=== PATIENT | male | born 2000 | race Caucasian/White ===

== ENCOUNTER 2025-03-12 11:10 | Outpatient (CLI) | payer OTHER, SELFPAY ==
[2025-03-12 12:55] LABS: Hematocrit 46.0 % (42.0-52.0); Hemoglobin 15.1 g/dL (14.0-18.0); Immature Granulocyte Percent A 0.3 % (0-0.5); Lymphocytes Absolute Auto 1.71 K/mm3 (0.9-3.2); Mean Corpuscular HGB Conc 32.8 g/dl (32-36); Mean Corpuscular Hemoglobin 30.1 pg (26-34); Mean Corpuscular Volume 91.6 fl (80-100); Nucleated Red Blood Cells Absolute Auto 0.000 K/mm3 (0.0-0.012); Nucleated Red Blood Cells Perc 0.0 % (0.0-0.2); Platelet Count Result 259 k/mm3 (150-375); Red Blood Count 5.02 M/mm3 (4.6-6.20); White Blood Count 7.2 K/mm3 (4.5-10.0)
[2025-03-12 13:11] LABS: Alanine Aminotransferase 24 U/L (6-50); Albumin Level 4.7 g/dL (3.5-5.1); Alkaline Phosphatase 58 U/L (38-126); Anion Gap 7 mmol/L (4-12); Aspartate Amino Transferase 43 U/L (17-59); Bilirubin,Total 0.5 mg/dL (0.2-1.3); Blood Urea Nitrogen 16 mg/dL (9-20); Calcium 9.4 mg/dL (8.4-10.2); Carbon Dioxide 26 mmol/L (22-30); Chloride 107 mmol/L (98-107); Cholesterol 232 mg/dL (0-200); Estimated Glomerular Filt Rate > 60; Glucose 72 mg/dL (65-110); HDL Direct 83 mg/dL; Potassium 4.1 mmol/L (3.4-5.0); Sodium 140 mmol/L (137-145); Total Protein 7.7 g/dL (6.3-8.2); Triglycerides 70 mg/dL (<150)
[2025-03-12 13:36] LABS: Free T3 3.00 pg/mL (2.32-6.09); Free T4 Free Thyroxine 0.80 ng/dL (0.78-2.19)
[2025-03-12 13:50] LABS: HIV 1/2 Ab P24 Ag Result Negative (Negative); Thyroid Stimulating Hormone 1.760 uIU/mL (0.465-4.680)
[2025-03-12 13:50] LABS: Syphilis IgG/IgM Antibody Non-Reactive (Nonreactive)
[2025-03-12 14:02] LABS: Trichomonas Vag PCR NOT DETECTED (NOT DETECTE)
[2025-03-12 14:09] LABS: Vitamin B12 552.0 pg/mL (239-931)
[2025-03-16 08:08] LABS: HSV-1 DNA Negative (Negative); HSV-2 DNA Negative (Negative)
== END 2025-03-12 11:11 | disposition home or self-care (01) ==
LOC: ANHGOSHLAB 11:11
PROVIDERS: PCP Nurse Practitioner Family; Visit Provider Nurse Practitioner Family
DX: R53.83 Other fatigue (principal); Z13.220 Encounter for screening for lipoid disorders; Z11.3 Encounter for screening for infections with a predominantly sexual mode of transmission
CPT/HCPCS: 36415; 80053; 80061; 82607; 84439; 84443; 84481; 85025; 86593; 86615; 86703; 87491; 87529; 87591; 87661; G0432